=== PATIENT | female | born 1980 | race Caucasian/White ===

== ENCOUNTER 2018-05-18 00:19 | Emergency (ER) | payer BC ==
[2018-05-18] MEDS ORDERED: HYDROmorphone 0.5 MG/0.5 ML Syringe IVPUSH ONE (01:12)
[2018-05-18] MEDS ORDERED: Sodium Chloride 0.9% 1,000 ML IV SCH (01:15)
--- NOTE | 2018-05-18 01:15 | EDM.PDOC ---
ED HPI GENERAL MEDICAL PROBLEM - General Chief Complaint: Abdominal Pain Stated Complaint: Abdominal Pain Time Seen by Provider: 05/18/18 00:55 Source of Information: Reports: Patient, Family History Limitations: Reports: No Limitations - History of Present Illness INITIAL COMMENTS - FREE TEXT/NARRATIVE: 37-year-old female with a sudden onset of right lower quadrant and suprapubic pain for the past 4 hours. Marked increase in pain when trying to have a bowel movement or when she laughs or coughs she feels like there shows sharp pain in the rectum. It radiates into the back. Nausea but no vomiting, she's also had some increased urinary urgency. No fevers or chills. Onset: Sudden (Fairly sudden onset 4 hours ago) Location: Reports: Abdomen (Lower abdomen and pelvis) Severity: Moderate Associated Symptoms: Reports: Loss of Appetite, Nausea/Vomiting. 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: Other (see below) Other Treatments RADIO INTERFERENCE EXPERT: none Pelvic Pain Score (Numeric/FACES): 10 - Related Data Allergies Allergy/AdvReac Type Severity Reaction Status Date / Time azithromycin Allergy Rash Verified 02/25/15 23:35 [From Zithromax Z-Lupillo] cefaclor [From Ceclor] Allergy Rash Verified 02/25/15 23:34 bee stings Allergy Hives Uncoded 02/25/15 23:36 tapes Allergy Rash Uncoded 02/25/15 23:36 Home Meds: Home Meds Chrom Regino/Brindal Schmid [Garcinia Cambogia Tablet] 1 each PO DAILY 05/18/18 [ History] Chromium Amino Acid Chelate [Chromium] 400 mcg PO DAILY 05/18/18 [History] L.acidoph,Paracasei, B.lactis [Probiotic] 1 each PO DAILY 05/18/18 [History] Multivitamin-Min/Iron/FA/Vit K [Multi-Day Plus Minerals Tablet] 1 each PO DAILY 05/18/18 [History] [place]-3/DHA/Epa/Fish Oil [[place] 3 500 Softgel] 1 each PO DAILY 05/18/18 [History ] Past Medical History Respiratory History: Reports: Asthma 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: - Infectious Disease History Infectious Disease History: Reports: Chicken Pox - Past Surgical History HEENT Surgical History: Reports: Tonsillectomy GI Surgical History: Reports: Dax Fundoplication Female Surgical History: Reports: D&C, Hysterectomy, Other (See Below) Musculoskeletal Surgical History: Reports: Other (See Below) Other Musculoskeletal Surgeries/Procedures:: left knee surgery Social & Family History - Tobacco Use Smoking Status *Q: Unknown Ever Smoked - Caffeine Use Caffeine Use: Reports: Coffee - Alcohol Use Days Per Week of Alcohol Use: 2 Number of Drinks Per Day: 3 Total Drinks Per Week: 6 - Recreational Drug Use Recreational Drug Use: No ED ROS GENERAL - Review of Systems Review Of Systems: See Below Constitutional: Reports: Malaise. Denies: Fever, Chills HEENT: Reports: No Symptoms Respiratory: Denies: Shortness of Breath Cardiovascular: Denies: Chest Pain GI/Abdominal: Reports: Abdominal Pain, Nausea. Denies: Diarrhea, Vomiting : Reports: Urgency. Denies: Dysuria Skin: Reports: No Symptoms Neurological: Reports: No Symptoms Psychiatric: Reports: No Symptoms ED EXAM, GENERAL - Physical Exam Exam: See Below Exam Limited By: No Limitations General Appearance: Alert, Mild Distress (Looks fairly uncomfortable) Eye Exam: Bilateral Eye: Normal Inspection Head: Atraumatic Respiratory/Chest: No Respiratory Distress Cardiovascular: Regular Rate, Rhythm GI/Abdominal: Normal Bowel Sounds, Tender (Very tender to palpation of the right lower quadrant but no significant rebound tenderness) Neurological: Alert, Oriented Psychiatric: Normal Affect, Normal Mood Skin Exam: Warm, Dry Course - Vital Signs Last Recorded V/S: Last Vital Signs Temp 96.8 F 05/18/18 00:50 Pulse 96 05/18/18 01:10 Resp 14 05/18/18 01:10 BP 133/79 05/18/18 01:10 Pulse Ox 97 05/18/18 01:10 - Orders/Labs/Meds Orders: Active Orders 24 hr Category Date Time Status Abdomen Pelvis w Cont [CT] Stat Exams 05/18/18 01:38 Taken Labs: Laboratory Tests 05/18/18 05/18/18 05/18/18 Range/Units 01:13 01:20 01:20 WBC 15.9 H (4.5-11.0) K/uL RBC 4.92 (3.30-5.50) M/uL Hgb 14.5 (12.0-15.0) g/dL Hct 43.9 (36.0-48.0) % MCV 89 (80-98) fL MCH 30 (27-31) pg MCHC 33 (32-36) % Plt Count 307 (150-400) K/uL Neut % (Auto) 66 (36-66) % Lymph % (Auto) 25 (24-44) % [place] % (Auto) 7 H (2-6) % Eos % (Auto) 2 (2-4) % Baso % (Auto) 1 (0-1) % Sodium 148 (140-148) mmol/L Potassium 4.2 (3.6-5.2) mmol/L Chloride 112 H (100-108) mmol/L Carbon Dioxide 26 (21-32) mmol/L Anion Gap 14.2 H (5.0-14.0) mmol/L BUN 14 (7-18) mg/dL Creatinine 1.1 H (0.6-1.0) mg/dL Est Cr Clr Drug Dosing 69.95 mL/min Estimated GFR (MDRD) 56 L (>60) Glucose 108 H (74-106) mg/dL Calcium 9.2 (8.5-10.1) mg/dL Total Bilirubin 0.2 (0.2-1.0) mg/dL AST 15 (15-37) U/L ALT 30 (12-78) U/L Alkaline Phosphatase 79 (46-116) U/L C-Reactive Protein (0.0-0.3) mg/dL Total Protein 7.4 (6.4-8.2) g/dL Albumin 3.8 (3.4-5.0) g/dL Globulin 3.6 H (2.3-3.5) g/dL Albumin/Globulin Ratio 1.1 L (1.2-2.2) Urine Color Yellow Urine Appearance Clear Urine pH 8.0 (4.5-8.0) Ur Specific [place] 1.005 L (1.008-1.030) Urine Protein Negative (NEGATIVE) mg/dL Urine Glucose (UA) Normal (NEGATIVE) mg/dL Urine Ketones Negative (NEGATIVE) mg/dL Urine Occult Blood Negative (NEGATIVE) Urine Nitrite Negative (NEGATIVE) Urine Bilirubin Negative (NEGATIVE) Urine Urobilinogen Normal (NORMAL) mg/dL Ur Leukocyte Esterase Negative (NEGATIVE) Urine RBC Not seen (0-5) Urine WBC Not seen (0-5) Ur Epithelial Cells Rare Amorphous Sediment Not seen Urine Bacteria Not seen Urine Mucus Not seen 05/18/18 Range/Units 01:20 WBC (4.5-11.0) K/uL RBC (3.30-5.50) M/uL Hgb (12.0-15.0) g/dL Hct (36.0-48.0) % MCV (80-98) fL MCH (27-31) pg MCHC (32-36) % Plt Count (150-400) K/uL Neut % (Auto) (36-66) % Lymph % (Auto) (24-44) % [place] % (Auto) (2-6) % Eos % (Auto) (2-4) % Baso % (Auto) (0-1) % Sodium (140-148) mmol/L Potassium (3.6-5.2) mmol/L Chloride (100-108) mmol/L Carbon Dioxide (21-32) mmol/L Anion Gap (5.0-14.0) mmol/L BUN (7-18) mg/dL Creatinine (0.6-1.0) mg/dL Est Cr Clr Drug Dosing mL/min Estimated GFR (MDRD) (>60) Glucose (74-106) mg/dL Calcium (8.5-10.1) mg/dL Total Bilirubin (0.2-1.0) mg/dL AST (15-37) U/L ALT (12-78) U/L Alkaline Phosphatase (46-116) U/L C-Reactive Protein 0.62 H (0.0-0.3) mg/dL Total Protein (6.4-8.2) g/dL Albumin (3.4-5.0) g/dL Globulin (2.3-3.5) g/dL Albumin/Globulin Ratio (1.2-2.2) Urine Color Urine Appearance Urine pH (4.5-8.0) Ur Specific [place] (1.008-1.030) Urine Protein (NEGATIVE) mg/dL Urine Glucose (UA) (NEGATIVE) mg/dL Urine Ketones (NEGATIVE) mg/dL Urine Occult Blood (NEGATIVE) Urine Nitrite (NEGATIVE) Urine Bilirubin (NEGATIVE) Urine Urobilinogen (NORMAL) mg/dL Ur Leukocyte Esterase (NEGATIVE) Urine RBC (0-5) Urine WBC (0-5) Ur Epithelial Cells Amorphous Sediment Urine Bacteria Urine Mucus Meds: Medications Discontinued Medications Generic Name Dose Route Start Last Admin Trade Name Clementq PRN Reason Stop Dose Admin Hydromorphone HCl 0.5 mg 05/18/18 01:12 05/18/18 01:24 Dilaudid IVPUSH 05/18/18 01:13 0.5 mg ONETIME ONE Administration Sodium Chloride 1,000 mls @ 1,000 mls/hr 05/18/18 01:15 05/18/18 01:23 Normal Saline IV 1,000 mls/hr ASDIRECTED TORI Administration Sodium Chloride 81 mls @ 3 mls/min 05/18/18 01:45 05/18/18 01:57 Normal Saline IV 3 mls/min ASDIRECTED TORI Administration Iopamidol 136 ml 05/18/18 01:45 05/18/18 01:57 Isovue-300 (61%) IV 05/18/18 01:46 150 ml ONETIME ONE Administration Ketorolac Tromethamine 30 mg 05/18/18 02:22 05/18/18 02:31 Toradol IVPUSH 05/18/18 02:23 30 mg ONETIME ONE Administration Ondansetron HCl 4 mg 05/18/18 02:02 05/18/18 02:04 Zofran IVPUSH 05/18/18 02:03 4 mg ONETIME ONE Administration Ondansetron HCl Confirm 05/18/18 02:02 05/18/18 02:09 Zofran Administered 05/18/18 02:03 4 mg Dose Administration 4 mg .ROUTE .STK-MED ONE Sodium Chloride 10 ml 05/18/18 01:41 05/18/18 01:57 Saline Flush FLUSH 05/18/18 01:42 10 ml ONETIME ONE Administration - Re-Assessments/Exams Free Text/Narrative Re-Assessment/Exam: 05/18/18 01:15 A UA was obtained, CBC CMP and CRP was ordered and the patient was started on 1 L of normal saline in preparation for a CT scan with IV contrast. She was given 0.5 mg of IV Dilaudid. 05/18/18 02:03 White count was 15,900, hemoglobin normal. CRP just slightly elevated and the urine was negative. 05/18/18 02:04 Dilaudid help with pain but caused some nausea, 4 mg of Zofran IV was given. 05/18/18 02:23 CT scan was negative so patient was given 30 mg of IV Toradol, and 10 additional doses of 10 mg ketorolac to take 3 times a day for the next 2-3 days if needed. Advance diet as tolerated and return if not improving in 12-24 hours. Departure - Departure Time of Disposition: 02:57 Disposition: Home, Self-Care 01 Condition: Good Clinical Impression: Abdominal pain Qualifiers: Abdominal location: lower abdomen, unspecified Qualified Code(s): R10.30 - Lower abdominal pain, unspecified - Discharge Information Instructions: Abdominal Pain, Adult, [id number] Referrals: PCP,None [Primary Care Provider] - Forms: ED Department Discharge Care Plan Goals: Try 1 dose of ketorolac every 6 hours until pain is gone. Lots of fluids, and advance diet as tolerated and recheck in 1-2 days if not improving satisfactorily. Also recheck sooner if you develop a fever, diarrhea with blood or worsening pain. - My Orders Last 24 Hours: My Active Orders 05/18/18 01:38 Abdomen Pelvis w Cont [CT] Stat - Assessment/Plan Last 24 Hours: My Active Orders 05/18/18 01:38 Abdomen Pelvis w Cont [CT] Stat
[2018-05-18] MEDS ORDERED: Sodium Chloride 0.9% 10 ML Syringe FLUSH ONE (01:41)
[2018-05-18] MEDS ORDERED: Iopamidol 612 MG/ML 150 ML Bottle IV ONE (01:45)
[2018-05-18] MEDS ORDERED: Ondansetron 4 MG/2 ML SDV ONE (02:02)
[2018-05-18] MEDS ORDERED: Ondansetron 4 MG/2 ML SDV IVPUSH ONE (02:02)
[2018-05-18] MEDS ORDERED: Ketorolac 30 MG/ML SDV IVPUSH ONE (02:22)
[2018-05-18 02:57] VITALS: BP 133/79
== END 2018-05-18 02:48 | disposition home or self-care (01) ==
LOC: JP.ED 00:19
DX: R10.31 Right lower quadrant pain (principal); Z88.1 Allergy status to other antibiotic agents; Z91.030 Bee allergy status
CPT/HCPCS: 36415; 74177; 80053; 81001; 85025; 86140; 96361; 96374; 96375; 99284; J1170; J1885; J2405; J7030; J7050

== ENCOUNTER 2019-12-19 06:56 | Inpatient (IN) | payer BC ==
[2019-12-19] MEDS ORDERED: HYDROmorphone 0.5 MG/0.5 ML Syringe IVPUSH ONE ×2 (07:25→07:41)
[2019-12-19] MEDS ORDERED: Ondansetron 4 MG/2 ML SDV IVPUSH ONE (07:25)
[2019-12-19] MEDS ORDERED: Sodium Chloride 0.9% 1,000 ML IV SCH (07:30)
--- NOTE | 2019-12-19 07:38 | EDM.PDOC ---
ED HPI GENERAL MEDICAL PROBLEM - General Chief Complaint: Abdominal Pain Stated Complaint: RT SIDE ABDOMINAL PAIN Time Seen by Provider: 12/19/19 07:05 Source of Information: Reports: Patient History Limitations: Reports: No Limitations - History of Present Illness INITIAL COMMENTS - FREE TEXT/NARRATIVE: 39-year-old female with nausea vomiting and lower abdominal pain for the past 72 hours. It started 3 evenings ago after supper she developed nausea and vomiting, for the last 48 hours she has had lower abdominal pain. She was seen in the clinic yesterday and started on penicillin, and diagnosed with food poisoning. Over the past 12 hours the pain is worsened, localized even more into the right lower quadrant and she is developed significant peritoneal irritation. Unsure if there is been fever chills, mild nausea but no vomiting. She has a history of a total hysterectomy as her only abdominal surgery. No urinary symptoms. Onset: Gradual Duration: Day(s): (3 days) Location: Reports: Abdomen Worsens with: Reports: Movement Associated Symptoms: Reports: Malaise. Denies: Chest Pain, Cough Abdominal Pain Score (Numeric/FACES): 10 - Related Data Allergies Allergy/AdvReac Type Severity Reaction Status Date / Time azithromycin Allergy Rash Verified 12/19/19 07:11 [From Zithromax Z-Lupillo] cefaclor [From Ceclor] Allergy Rash Verified 12/19/19 07:11 minocycline Allergy Rash Verified 12/19/19 07:11 bee stings Allergy Hives Uncoded 02/25/15 23:36 tapes Allergy Rash Uncoded 02/25/15 23:36 Home Meds: Home Meds Chromium Amino Acid Chelate [Chromium] 400 mcg PO DAILY 05/18/18 [History] L.acidoph,Paracasei, B.lactis [Probiotic] 1 each PO DAILY 05/18/18 [History] Multivitamin-Min/Iron/FA/Vit K [Multi-Day Plus Minerals Tablet] 1 each PO DAILY 05/18/18 [History] [place]-3/DHA/Epa/Fish Oil [[place] 3 500 Softgel] 1 each PO DAILY 05/18/18 [History ] Albuterol Sulfate [Proventil Hfa] 1 puff INH ASDIRECTED PRN 12/19/19 [History] Past Medical History Respiratory History: Reports: Asthma 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: - Infectious Disease History Infectious Disease History: Reports: Chicken Pox - Past Surgical History HEENT Surgical History: Reports: Tonsillectomy GI Surgical History: Reports: Dax Fundoplication Female Surgical History: Reports: D&C, Hysterectomy Musculoskeletal Surgical History: Reports: Other (See Below) Other Musculoskeletal Surgeries/Procedures:: left knee surgery Social & Family History - Tobacco Use Smoking Status *Q: Light Tobacco Smoker Years of Tobacco use: 20 Packs/Tins Daily: 0.4 Tobacco Use Comment: smokes off and on for 20 years - Caffeine Use Caffeine Use: Reports: Coffee - Recreational Drug Use Recreational Drug Use: No ED ROS GENERAL - Review of Systems Review Of Systems: See Below Constitutional: Reports: Chills, Malaise, Decreased Appetite. Denies: Fever HEENT: Reports: No Symptoms Respiratory: Denies: Shortness of Breath Cardiovascular: Denies: Chest Pain GI/Abdominal: Reports: Abdominal Pain, Diarrhea, Nausea. Denies: Constipation Skin: Reports: Other Psychiatric: Reports: No Symptoms ED EXAM, GI/ABD - Physical Exam Exam: See Below Exam Limited By: No Limitations General Appearance: Alert, Moderate Distress Eyes: Bilateral: Normal Appearance (No jaundice) Respiratory/Chest: No Respiratory Distress, Lungs Clear Cardiovascular: Regular Rate, Rhythm GI/Abdominal Exam: Rigid (Significant guarding in the right lower quadrant with marked peritoneal irritation and rebound tenderness. Palpation of the left side of the abdomen refers to the right lower quadrant), Rebound, Tender Neurological: Alert, Oriented Psychiatric: Anxious Skin Exam: Warm, Dry Course - Vital Signs Last Recorded V/S: Last Vital Signs Temp 100.7 F H 12/19/19 10:14 Pulse 96 12/19/19 10:14 Resp 16 12/19/19 10:14 BP 121/71 12/19/19 10:14 Pulse Ox 95 12/19/19 10:14 - Orders/Labs/Meds Orders: Active Orders 24 hr Category Date Time Status Aztreonam [Azactam] 1 gm Med 12/19/19 09:00 Active Sodium Chloride 0.9% [Normal Saline] 50 ml IV Q8H Dextrose 5%-Lactated Ringers 1,000 ml Med 12/19/19 09:15 Active IV ASDIRECTED HYDROmorphone [Dilaudid] Med 12/19/19 09:04 Active 1 mg IV Q2H PRN Meropenem [Merrem] 500 mg Med 12/19/19 15:00 Active Sodium Chloride 0.9% [Normal Saline] 50 ml IV Q6H Ropivacaine [Naropin 0.5%] 45 ml Med 12/19/19 11:30 Active dexAMETHasone [Dexamethasone] 8 mg EPINEPHrine [Adrenalin] 0.4 mg Sodium Chloride 0.9% [Normal Saline] 32.6 ml NERVRT ASDIRECTED Medication Orders Ropivacaine 45 ml/Dexamethasone 8 mg/Epinephrine HCl 0.4 mg/ Sodium Chloride 32.6 ml 0 ml NERVRT ASDIRECTED TORI Last Admin: 12/19/19 11:59 Dose: 80 syringe Hydromorphone HCl (Dilaudid) 1 mg IV Q2H PRN PRN Reason: PAIN Last Admin: 12/19/19 11:06 Dose: 1 mg Hydroxyzine HCl (Vistaril) 100 mg IM ONETIME ONE Stop: 12/19/19 12:31 Aztreonam 1 gm/ Sodium (Chloride) 50 mls @ 100 mls/hr IV Q8H [facility] Last Admin: 12/19/19 09:09 Dose: 100 mls/hr Dextrose/Lactated Ringer's (Dextrose 5%-Lactated Ringers) 1,000 mls @ 150 mls/ hr IV ASDIRECTED [facility] Last Admin: 12/19/19 10:15 Dose: 150 mls/hr Meropenem 500 mg/ Sodium (Chloride) 50 mls @ 100 mls/hr IV Q6H [facility] Labs: Laboratory Tests 12/19/19 12/19/19 12/19/19 Range/Units 07:28 07:28 08:04 WBC 17.0 H (4.5-11.0) K/uL RBC 4.92 (3.30-5.50) M/uL Hgb 14.3 (12.0-15.0) g/dL Hct 44.6 (36.0-48.0) % MCV 91 (80-98) fL MCH 29 (27-31) pg MCHC 32 (32-36) % Plt Count 291 (150-400) K/uL Neut % (Auto) 84 H (36-66) % Lymph % (Auto) 10 L (24-44) % [place] % (Auto) 6 (2-6) % Eos % (Auto) 1 L (2-4) % Baso % (Auto) 0 (0-1) % Sodium 138 L (140-148) mmol/L Potassium 3.9 (3.6-5.2) mmol/L Chloride 104 (100-108) mmol/L Carbon Dioxide 23 (21-32) mmol/L Anion Gap 14.9 H (5.0-14.0) mmol/L BUN 16 (7-18) mg/dL Creatinine 1.1 H (0.6-1.0) mg/dL Est Cr Clr Drug Dosing 66.11 mL/min Estimated GFR (MDRD) 55 L (>60) Glucose 103 (74-106) mg/dL Calcium 8.7 (8.5-10.1) mg/dL Total Bilirubin 1.1 H D (0.2-1.0) mg/dL AST 13 L (15-37) U/L ALT 32 (12-78) U/L Alkaline Phosphatase 78 (46-116) U/L Total Protein 7.3 (6.4-8.2) g/dL Albumin 3.6 (3.4-5.0) g/dL Globulin 3.7 H (2.3-3.5) g/dL Albumin/Globulin Ratio 1.0 L (1.2-2.2) Urine Color Yellow (YELLOW) Urine Appearance Slightly cloudy A (CLEAR) Urine pH 6.0 (5.0-8.0) Ur Specific [place] 1.015 (1.008-1.030) Urine Protein Trace H (NEGATIVE) mg/dL Urine Glucose (UA) Negative (NEGATIVE) mg/dL Urine Ketones Negative (NEGATIVE) mg/dL Urine Occult Blood Trace-lysed H (NEGATIVE) Urine Nitrite Negative (NEGATIVE) Urine Bilirubin Negative (NEGATIVE) Urine Urobilinogen 0.2 (0.2-1.0) EU/dL Ur Leukocyte Esterase Negative (NEGATIVE) Urine RBC 0-5 (0-5) Urine WBC 0-5 (0-5) Ur Epithelial Cells Moderate Amorphous Sediment Not seen Urine Bacteria Few Urine Mucus Not seen Meds: Medications Generic Name Dose Route Start Last Admin Trade Name Freq PRN Reason Stop Dose Admin Ropivacaine 45 ml/ 0 ml 12/19/19 11:30 12/19/19 11:59 Dexamethasone 8 mg/ NERVRT 80 syringe Epinephrine HCl 0.4 mg/ Sodium ASDIRECTED TORI Administration Chloride 32.6 ml Hydromorphone HCl 1 mg 12/19/19 09:04 12/19/19 11:06 Dilaudid IV 1 mg Q2H PRN Administration PAIN Hydroxyzine HCl 100 mg 12/19/19 12:30 Vistaril IM 12/19/19 12:31 ONETIME ONE Aztreonam 1 gm/ Sodium 50 mls @ 100 mls/hr 12/19/19 09:00 12/19/19 09:09 Chloride IV 100 mls/hr Q8H TORI Administration Dextrose/Lactated Ringer's 1,000 mls @ 150 mls/hr 12/19/19 09:15 12/19/19 10: 15 Dextrose 5%-Lactated Ringers IV 150 mls/hr ASDIRECTED TORI Administration Meropenem 500 mg/ Sodium 50 mls @ 100 mls/hr 12/19/19 15:00 Chloride IV Q6H TORI Discontinued Medications Generic Name Dose Route Start Last Admin Trade Name Freq PRN Reason Stop Dose Admin Albuterol/Ipratropium 3 ml 12/19/19 11:30 12/19/19 11:05 Duoneb 3.0-0.5 Mg/3 Ml INH 12/19/19 11:31 3 ml ONCALL ONE Administration Bupivacaine HCl/Epinephrine Bitart Confirm 12/19/19 10:20 Marcaine 0.5%/Epinephrine 1:200,000 Administered 12/19/19 10:21 Dose 50 ml .ROUTE .STK-MED ONE Dexamethasone Confirm 12/19/19 09:20 Dexamethasone Administered 12/19/19 09:21 Dose 4 mg .ROUTE .STK-MED ONE Fentanyl Confirm 12/19/19 09:20 Sublimaze Administered 12/19/19 09:21 Dose 250 mcg .ROUTE .STK-MED ONE Fentanyl Confirm 12/19/19 11:40 Sublimaze Administered 12/19/19 11:41 Dose 250 mcg .ROUTE .STK-MED ONE Glycopyrrolate Confirm 12/19/19 09:20 Robinul Administered 12/19/19 09:21 Dose 1 mg .ROUTE .STK-MED ONE Hydromorphone HCl 0.5 mg 12/19/19 07:25 12/19/19 07:30 Dilaudid IVPUSH 12/19/19 07:26 0.5 mg ONETIME ONE Administration Hydromorphone HCl 0.5 mg 12/19/19 07:41 12/19/19 07:46 Dilaudid IVPUSH 12/19/19 07:42 0.5 mg ONETIME ONE Administration Hydromorphone HCl 1 mg 12/19/19 08:56 12/19/19 09:09 Dilaudid IVPUSH 12/19/19 08:57 1 mg ONETIME ONE Administration Sodium Chloride 1,000 mls @ 1,000 mls/hr 12/19/19 07:30 12/19/19 08:06 Normal Saline IV 1,000 mls/hr ASDIRECTED TORI Administration Meropenem 500 mg/ Sodium 50 mls @ 100 mls/hr 12/19/19 08:30 12/19/19 08:30 Chloride IV 12/19/19 08:59 100 mls/hr ONETIME ONE Administration Sodium Chloride Confirm 12/19/19 12:08 Normal Saline Administered 12/19/19 12:09 Dose 10 mls @ as directed .ROUTE .STK-MED ONE Meropenem Confirm 12/19/19 12:08 Merrem Administered 12/19/19 12:09 Dose 500 mg .ROUTE .STK-MED ONE Neostigmine Methylsulfate Confirm 12/19/19 09:20 Neostigmine Administered 12/19/19 09:21 Dose 5 mg .ROUTE .STK-MED ONE Ondansetron HCl 4 mg 12/19/19 07:25 12/19/19 07:32 Zofran IVPUSH 12/19/19 07:26 4 mg ONETIME ONE Administration Ondansetron HCl Confirm 12/19/19 09:20 Zofran Administered 12/19/19 09:21 Dose 4 mg .ROUTE .STK-MED ONE Pantoprazole Sodium 40 mg 12/19/19 10:00 12/19/19 10:16 Protonix Iv IV 12/19/19 10:01 40 mg ONETIME ONE Administration Propofol Confirm 12/19/19 09:20 Diprivan 20 Ml Administered 12/19/19 09:21 Dose 200 mg .ROUTE .STK-MED ONE Rocuronium [place] Confirm 12/19/19 09:20 Zemuron Administered 12/19/19 09:21 Dose 50 mg .ROUTE .STK-MED ONE Succinylcholine Chloride Confirm 12/19/19 09:20 Quelicin Administered 12/19/19 09:21 Dose 200 mg .ROUTE .[facility] ONE - Re-Assessments/Exams Free Text/Narrative Re-Assessment/Exam: 12/19/19 07:38 An IV was started, patient was given 0.5 mg of IV Dilaudid and 4 mg of IV Zofran and a bolus of 1000 cc of normal saline was initiated. CT of the abdomen and pelvis without contrast was ordered. 12/19/19 07:42 A second dose of Dilaudid was given prior to the CT. 12/19/19 08:35 Impression: 1. Acute appendicitis with an appendicolith and tiny amount of free fluid in the pelvic peritoneal cavity. 2. A 2mm nonobstructing calculus upper pole calyx right kidney without any obstructive uropathy or perinephric pathology. 3. Large area of ground-glass opacities lower lobe right lung; suggest obtaining a dedicated chest CT. 12/19/19 09:43 White count is now 17,000, 20,[address] findings were discussed with Dr. Alcocer, on-call surgery and 500 mg of IV meropenem was ordered. She will be admitted to prepare for surgical treatment of acute appendicitis. Departure - Departure Time of Disposition: 10:17 Disposition: Admitted As Inpatient 65 Clinical Impression: Appendicitis Qualifiers: Appendicitis type: acute appendicitis Acute appendicitis type: with localized peritonitis Appendicitis gangrene presence: without gangrene Appendicitis perforation presence: without perforation Appendicitis abscess presence: without abscess Qualified Code(s): K35.30 - Acute appendicitis with localized peritonitis, without perforation or gangrene - Discharge Information Sepsis Event Note - Evaluation Sepsis Screening Result: No Definite Risk - Focused Exam Vital Signs: Vital Signs Temp Pulse Resp BP Pulse Ox 12/19/19 08:40 87 18 118/71 98 12/19/19 08:15 95 18 137/83 98 12/19/19 07:48 93 129/76 97 12/19/19 07:08 98 F 98 20 121/67 98 Date Exam was Performed: 12/19/19 Time Exam was Performed: 12:33
[2019-12-19] MEDS ORDERED: Meropenem 500 MG in Sodium Chloride 0.9% 50 ML IV ONE ×2 (08:04→08:30)
--- NOTE | 2019-12-19 08:33 | CRLCT ---
INDICATION: Lower abdominal pain. COMPARISON: CT abdomen and pelvis 05/18/2018. TECHNIQUE: CT abdomen and pelvis without intravenous or oral contrast; coronal and sagittal reformats. FINDINGS: No abnormal intra pulmonary nodular densities through the lung bases. Large areas of patchy ground-glass opacities identified involving the lower lobe right lung; relatively new when compared to May 18, 2018; suggest obtaining a dedicated full chest CT as an outpatient. No focal hepatic or splenic pathology. No pancreatic pathology. Gallbladder is unremarkable. No adrenal pathology. 2 mm nonobstructing calculus upper pole calyx right kidney slice 45 series 2. No retroperitoneal lymphadenopathy. No evidence of abdominal ascites. Status post hysterectomy. Small amount of free fluid identified within the pelvic peritoneal cavity. An appendicolith with edema involving the tip of the appendix with periappendiceal inflammatory changes indicating acute appendicitis. No intra-abdominal abscess. No pneumoperitoneum or intestinal obstruction. Impression: 1. Acute appendicitis with an appendicolith and tiny amount of free fluid in the pelvic peritoneal cavity. 2. A 2mm nonobstructing calculus upper pole calyx right kidney without any obstructive uropathy or perinephric pathology. 3. Large area of ground-glass opacities lower lobe right lung; suggest obtaining a dedicated chest CT. Please note that all CT scans at this facility use dose modulation, iterative reconstruction, and/or weight-based dosing when appropriate to reduce radiation dose to as low as reasonably achievable. Dictated by Fred Rivera MD @ Dec 19 2019 8:11AM Signed by Dr. Fred Rivera @ Dec 19 2019 8:32AM
[2019-12-19] MEDS ORDERED: HYDROmorphone 1 MG/ML Syringe IVPUSH ONE (08:56)
[2019-12-19] MEDS ORDERED: HYDROmorphone 1 MG/ML Syringe IV PRN ×2 (09:04→14:17)
[2019-12-19] MEDS ORDERED: Dextrose 5%-Lactated Ringers 1,000 ML IV SCH (09:15)
[2019-12-19] MEDS ORDERED: Ondansetron 4 MG/2 ML SDV ONE (09:20)
[2019-12-19] MEDS ORDERED: Propofol 200 MG/20 ML SDV ONE (09:20)
[2019-12-19] MEDS ORDERED: Succinylcholine 200 MG/10 ML MDV ONE (09:20)
[2019-12-19] MEDS ORDERED: Glycopyrrolate 0.2 MG/ML 5 ML MDV ONE (09:20)
[2019-12-19] MEDS ORDERED: Neostigmine Methylsulfate 1 MG/ML 5 ML Syringe ONE (09:20)
[2019-12-19] MEDS ORDERED: Dexamethasone 4 MG/ML SDV ONE (09:20)
[2019-12-19] MEDS ORDERED: Rocuronium 50 MG/5 ML Vial ONE (09:20)
[2019-12-19] MEDS ORDERED: fentaNYL 250 MCG/5 ML SDV ONE ×2 (09:20→11:40)
[2019-12-19] MEDS ORDERED: Pantoprazole 40 MG Vial IV ONE (10:00)
[2019-12-19] MEDS ORDERED: Bupivacaine 0.5%/EPINEPHrine 1:200,000 50 ML MDV ONE (10:20)
[2019-12-19] MEDS ORDERED: Albuterol/Ipratropium 3.0-0.5 MG/3 ML Neb Soln INH ONE (11:30)
[2019-12-19] MEDS ORDERED: Sodium Chloride 0.9% 10 ML ONE (12:08)
[2019-12-19] MEDS ORDERED: Meropenem 500 MG SDV ONE (12:08)
[2019-12-19] MEDS ORDERED: hydrOXYzine HCL 100 MG/2 ML SDV IM ONE (12:30)
[2019-12-19] MEDS: Dextrose 5%-Lactated Ringers 1,000 ML IV SCH ×2 (14:00→23:22)
[2019-12-19] MEDS ORDERED: HYDROmorphone 0.5 MG/0.5 ML Syringe IVPUSH PRN (14:18)
[2019-12-19] MEDS ORDERED: oxyCODONE 5 MG Tab PO PRN (14:18)
[2019-12-19] MEDS ORDERED: hydrOXYzine HCL 100 MG/2 ML SDV IM PRN (14:19)
[2019-12-19] MEDS ORDERED: Albuterol/Ipratropium 3.0-0.5 MG/3 ML Neb Soln INH PRN (14:20)
[2019-12-19] MEDS: Ondansetron 4 MG/2 ML SDV IVPUSH PRN (14:44)
[2019-12-19] MEDS: Meropenem 500 MG in Sodium Chloride 0.9% 50 ML IV SCH ×2 (15:40→20:40)
[2019-12-19] MEDS: Albuterol/Ipratropium 3.0-0.5 MG/3 ML Neb Soln INH SCH ×2 (15:44→20:52)
[2019-12-19] MEDS: Acetaminophen 500 MG Tab PO SCH ×2 (16:32→21:32)
[2019-12-19] MEDS: Nicotine 14 MG/24 Hr Patch TRDERM SCH (18:47)
[2019-12-19] MEDS: HYDROmorphone 2 MG Tab PO PRN (22:39)
[2019-12-20] MEDS: HYDROmorphone 2 MG Tab PO PRN ×5 (03:12→18:53)
[2019-12-20] MEDS: Acetaminophen 500 MG Tab PO SCH ×4 (03:13→21:35)
[2019-12-20] MEDS: Meropenem 500 MG in Sodium Chloride 0.9% 50 ML IV SCH ×4 (03:14→20:14)
[2019-12-20] MEDS: Dextrose 5%-Lactated Ringers 1,000 ML IV SCH ×3 (06:43→21:37)
[2019-12-20] MEDS ORDERED: Ondansetron 4 MG Tab.DIS PO PRN (07:14)
[2019-12-20] MEDS ORDERED: hydrOXYzine HCl 25 MG Tab PO PRN (07:15)
[2019-12-20] MEDS: Nicotine 14 MG/24 Hr Patch TRDERM SCH (09:20)
[2019-12-20] MEDS: Celecoxib 200 MG Cap PO SCH ×2 (09:20→20:15)
[2019-12-20] MEDS: Pantoprazole 40 MG Vial IV SCH (09:22)
[2019-12-20] MEDS: Albuterol/Ipratropium 3.0-0.5 MG/3 ML Neb Soln INH SCH ×4 (09:34→20:15)
--- NOTE | 2019-12-20 11:32 | PN ---
DATE OF SERVICE: 12/20/2019 SUBJECTIVE: Cat is postoperative day 1. She states she has had a difficult time keeping ahead of her pain, and on top of the surgical pain, she states she has a headache, thinking it is from caffeine withdrawal. She did have a little bit of coffee, but does not feel like it was enough. Her Jones has been removed. She has been up voiding. Afebrile. Oral intake 120. Urine output 1085. CHYNA put out 65 mL of a light pink drainage. REVIEW OF SYSTEMS: Remainder of review of systems negative for any pertinent positives and negatives. OBJECTIVE: GENERAL: Cat Calzada is a pleasant 39-year-old female. She is alert and orientated. VITAL SIGNS: TPR from 0259 is 97.7, 66, 16, and blood pressure 107/56. HEENT: Negative. NECK: Supple. HEART: Regular rate and rhythm. LUNGS: Clear. ABDOMEN: Dressing is dry and intact. Abdominal binder is on. CHYNA drain intact. EXTREMITIES: Without peripheral edema. ASSESSMENT: 1. Diagnostic laparotomy with;. a. Partial cecectomy involving removal of overlying appendix. b. Drainage of pericolonic abscess for postoperative diagnosis of perforated appendix with severe inflammation extending to the cecal base. 2. Pericolonic abscess. PLAN: 1. May shower. 2. Full liquid diet. 3. Celebrex 200 mg p.o. b.i.d. 4. Dilaudid 2 to 4 mg every 4 hours p.r.n. pain. 5. Atarax 25 mg every 4 hours p.r.n. additional pain. 6. Zofran ODT 4 mg every 4 hours p.r.n. nausea or vomiting. 7. Decrease IV of D5-LR to 100 mL per hour. 8. Discontinue IV Dilaudid. 9. Discontinue continuous pulse ox and discontinue telemetry. 10.Continue use of the incentive spirometer 10 times every hour while awake. 11.We will evaluate p.r.n. or in the a.m. Eloise Hess PA-C /[id number]
[2019-12-20] MEDS: Ondansetron 4 MG/2 ML SDV IVPUSH PRN (11:50)
[2019-12-21] MEDS: HYDROmorphone 2 MG Tab PO PRN ×4 (00:32→20:06)
[2019-12-21] MEDS: Meropenem 500 MG in Sodium Chloride 0.9% 50 ML IV SCH ×4 (03:48→20:46)
[2019-12-21] MEDS: Acetaminophen 500 MG Tab PO SCH ×4 (03:48→21:13)
[2019-12-21] MEDS: Albuterol/Ipratropium 3.0-0.5 MG/3 ML Neb Soln INH SCH ×4 (07:17→20:27)
[2019-12-21] MEDS: Dextrose 5%-Lactated Ringers 1,000 ML IV SCH ×2 (08:22→19:39)
[2019-12-21] MEDS: Nicotine 14 MG/24 Hr Patch TRDERM SCH (09:22)
[2019-12-21] MEDS: Celecoxib 200 MG Cap PO SCH ×2 (09:22→20:10)
[2019-12-21] MEDS: Pantoprazole 40 MG Vial IV SCH (09:23)
[2019-12-21] MEDS ORDERED: Magnesium Hydroxide 400 MG/5 ML Susp 30 ML Cup PO ONE (10:00)
[2019-12-21] MEDS: Bisacodyl 5 MG Tab PO SCH ×2 (10:11→20:10)
[2019-12-21] MEDS: Docusate Sodium 100 MG Cap PO SCH ×2 (10:11→20:10)
[2019-12-21] MEDS: Lactobacillus Rhamnosus GG (Probiotic) Cap PO SCH ×2 (14:41→20:09)
[2019-12-22] MEDS: HYDROmorphone 2 MG Tab PO PRN ×2 (01:48→09:58)
[2019-12-22] MEDS ORDERED: hydrOXYzine HCl 25 MG Tab PO PRN (02:46)
[2019-12-22] MEDS: Meropenem 500 MG in Sodium Chloride 0.9% 50 ML IV SCH ×2 (02:54→08:27)
[2019-12-22] MEDS: Acetaminophen 500 MG Tab PO SCH (03:00)
[2019-12-22 07:06] VITALS: BP 122/76
[2019-12-22] MEDS: Albuterol/Ipratropium 3.0-0.5 MG/3 ML Neb Soln INH SCH (07:10)
[2019-12-22 07:11] VITALS: PULSE 80
[2019-12-22] MEDS: Nicotine 14 MG/24 Hr Patch TRDERM SCH (08:09)
[2019-12-22] MEDS: Bisacodyl 5 MG Tab PO SCH (08:09)
[2019-12-22] MEDS: Docusate Sodium 100 MG Cap PO SCH (08:09)
[2019-12-22] MEDS: Lactobacillus Rhamnosus GG (Probiotic) Cap PO SCH (08:09)
[2019-12-22] MEDS: Celecoxib 200 MG Cap PO SCH (08:09)
--- NOTE | 2019-12-22 10:43 | PN ---
DATE OF SERVICE: 12/21/2019 The patient has been afebrile with stable vital signs. There has been no flatus or bowel movement as of yet. We will give her some bowel stimulation today. Cultures ruled out Escherichia coli which is sensitive to the antibiotic that she is on. We will continue the meropenem and Azactam. Switching over to oral pain medication today and she may be ready for discharge home tomorrow. Juan Manuel Alcocer MD /[id number]
--- NOTE | 2019-12-30 16:24 | DISCH ---
FINAL DIAGNOSIS: Perforated appendicitis with severe inflammation extending to cecal base with pericolonic abscess. SECONDARY DIAGNOSIS: History of asthma. OPERATIVE PROCEDURES: Done on 12/18, diagnostic laparoscopy with: 1. Partial cecectomy including removal of overlying appendix. 2. Drainage of pericolonic abscess. SUMMARY: This is a 39-year-old presenting with a picture of an acute abdomen. Workup was consistent with appendicitis. There was some visible pelvic fluid, making this suspicious for one with perforation. After preoperative preparation, the patient underwent diagnostic laparoscopy and perforated appendicitis with severe inflammation extending down onto the cecum was noted. The patient had a pericolonic abscess extending from the pelvis up along the right colic gutter up more or less to the level of the inferior aspect of the right lobe of the liver. This abscess was cultured and it ultimately grew E coli sensitive to the antibiotics the patient had been on. The patient also underwent irrigation of the abdomen and pelvis with meropenem. At the time of discharge, she has a clear CHYNA drainage, is tolerating oral pain medication satisfactorily, and has been afebrile. The plan will be to send her home with her usual home medications plus Atarax 50 mg p.o. q.4 hours p.r.n. pain, Celebrex 200 mg p.o. daily #30, DuoNeb with home nebulizer #40, and Dilaudid 4 mg q.4 hours p.r.n. pain #40. She will be following up with Dr. Alcocer at [facility] on 12/31.
--- NOTE | 2020-01-01 14:57 | OR ---
DATE OF PROCEDURE: 12/19/2019 SURGEON: Juan Manuel Alcocer MD PREOPERATIVE DIAGNOSIS: Acute appendicitis. POSTOPERATIVE DIAGNOSES: 1. Perforated appendicitis with severe inflammation extending onto cecal base. 2. Pericolonic abscess. OPERATIVE PROCEDURES: Diagnostic laparoscopy with, 1. Partial cecectomy including removal of overlying appendix (05017). 2. Drainage of pericolonic abscess (26883). ANESTHESIA: General. SPECIAL EDUCATION SUPERVISOR: Eloise Hess PA-C INDICATION FOR PROCEDURE: This is a 39-year-old female presenting with 72-hour history of increasing abdominal pain. Workup was consistent with acute appendicitis. There is some fluid in the pelvis suggestive of likelihood of perforation. Plan is to proceed with diagnostic laparoscopy, laparotomy if necessary, and appendectomy with other procedures as indicated based on operative findings. Potential risks of the procedure including bleeding, infection, leaks from various GI tract closures such as appendectomy stump, possible recurrent infection or abscesses postoperatively as well as the remote possibility of cardiopulmonary, septic, or hemorrhagic complications leading to were all discussed, and the patient wishes to proceed. DETAILS OF PROCEDURE: The patient was taken to the operating room and placed in the supine position. After general endotracheal anesthesia was induced, a Jones catheter was inserted, and the abdomen was prepped and draped. Three fingerbreadths superior to the left of the umbilicus, a transverse incision was made and peritoneal cavity entered under direct visualization with an Optiview trocar and inflated to 15 mmHg pressure with CO2. Laparoscope was then reinserted. No underlying trocar insertion site injuries were seen. Following this, 12 mm trocars were placed in the left lower quadrant and right upper quadrant and subsequently a 5-mm trocar placed in the right flank for placement of a drain. As the appendix was mobilized upward, there was obviously free perforation. There was some stool present in the area next to the appendix, and this was initially evacuated. The patient's inflammation and necrosis extended up onto the cecum, to the extent that the base of the appendix itself will not be a suitable point for division of the GI tract. Given this, this was mobilized upward and portion of the cecum excised with 2 firings of the NANDA purple loads. Care was taken to avoid compressing or narrowing the ileocecal valve. The specimen was then placed in a specimen bag and taken out through the left lower quadrant trocar site. The patient had extensive abscess extending next to the colon up to the level of the liver. This pericolonic abscess extended downward across the ascending colon, cecum, and then extended somewhat into the pelvis. This was all evacuated and cultures were obtained. Initial Gram stain showed gram-negative rods. Given the extent of the abscess formation, meropenem was then used to irrigate the abdomen and pelvis and 1 liter of this solution was used eventually resulting in a satisfactory clearance of the abdomen and pelvis. Tor-Giraldo drain was then taken out through the right flank trocar site, placed across the cecal closure and from there into the pelvis. Cecal closure was then also reinforced with some fibrin sealant and an omental patch placed over that. At this point, no further problems were noted. Trocars were removed and peritoneal cavity deflated. Incisions were closed with 0 Vicryl stitch at the fascia level and 4-0 Vicryl skin stitch. The removal of the specimen through the specimen bag appeared to be clean enough to allow a primary closure of the left lower quadrant trocar site. The patient was taken to the recovery room in satisfactory condition. Physician residential living assistant, Eloise Hess, played an essential role in assisting in this case; helping to position the patient, retract structures as needed, as well as suturing and cutting sutures when indicated. Her presence improved patient safety and decreased the operative time. Juan Manuel Alcocer MD /[id number]
== END 2019-12-22 10:25 | disposition home or self-care (01) | DRG 221 ==
LOC: JP.ED 06:56 → JP.MS 09:30
PROVIDERS: ADMIT Surgery; ATTEND Surgery
PROC: 0DTJ4ZZ Resection of Appendix, Percutaneous Endoscopic Approach (ICD-10-PCS; principal; 2019-12-19)
PROC: 0W9G4ZZ Drainage of Peritoneal Cavity, Percutaneous Endoscopic Approach (ICD-10-PCS; 2019-12-19)
PROC: 0DBH4ZZ Excision of Cecum, Percutaneous Endoscopic Approach (ICD-10-PCS; 2019-12-19)
DX: K35.33 Acute appendicitis with perforation, localized peritonitis, and gangrene, with abscess (principal); K55.049 Acute infarction of large intestine, extent unspecified; K63.0 Abscess of intestine; F17.210 Nicotine dependence, cigarettes, uncomplicated; J45.909 Unspecified asthma, uncomplicated; Z90.710 Acquired absence of both cervix and uterus; Z88.1 Allergy status to other antibiotic agents; Z88.8 Allergy status to other drugs, medicaments and biological substances; Z91.030 Bee allergy status; Z91.09 Other allergy status, other than to drugs and biological substances; Z79.899 Other long term (current) drug therapy; Z90.89 Acquired absence of other organs
CPT/HCPCS: 36415; 74176; 80053; 81001; 85025; 87070; 87075; 87077; 87186; 87205; 88304; 94640; 94762; 96365; 96367; 96375; 96376; 99285-25; A9270-GY; C9113; J0171; J0330; J1100; J1170; J2185; J2405; J2704; J2710; J2795; J3010; J3410; J3490; J7030; J7050; J7121; J7620-GY

== ENCOUNTER 2020-03-10 18:15 | Emergency (ER) | payer BC ==
[2020-03-10 19:27] VITALS: BP 133/82; PULSE 60
--- NOTE | 2020-03-10 19:41 | EDM.PDOC ---
ED HPI GENERAL MEDICAL PROBLEM - General Chief Complaint: General Stated Complaint: BLURRY VISION Time Seen by Provider: 03/10/20 19:25 Source of Information: Reports: Patient History Limitations: Reports: No Limitations - History of Present Illness INITIAL COMMENTS - FREE TEXT/NARRATIVE: 39-year-old female developed left lateral wavy and blurry vision about 2 hours ago, occurring 2-1/2 days after left-sided head injury. She was inadvertently struck on the left side of her head by one of her goats, it did hit her in the temporal area with a horn and even caused a small puncture in the helix of the ear. It knocked her to her knees but did not knock her out, she has full memory of the event. She has not developed any nausea or vomiting, does have a mild headache or pressure sensation but no double vision. Some neck soreness. 2 hours after coming into the emergency room, while looking at her computer she developed some left lateral waviness and blurriness which worsens if she looks to the right. She called optometry and they told her to come to the emergency room. Onset: Sudden (Blurry vision started fairly suddenly 2 hours ago) Associated Symptoms: Reports: Other (Mild left-sided headache or head pressure) Left Head Pain Score (Numeric/FACES): 2 - Related Data Allergies Allergy/AdvReac Type Severity Reaction Status Date / Time azithromycin Allergy Rash Verified 03/10/20 19:13 [From Zithromax Z-Lupillo] cefaclor [From Ceclor] Allergy Rash Verified 03/10/20 19:13 minocycline Allergy Rash Verified 03/10/20 19:13 bee stings Allergy Hives Uncoded 03/10/20 19:13 tapes Allergy Rash Uncoded 03/10/20 19:13 Home Meds: Home Meds Chromium Amino Acid Chelate [Chromium] 400 mcg PO DAILY 05/18/18 [History] L.acidoph,Paracasei, B.lactis [Probiotic] 1 each PO DAILY 05/18/18 [History] Multivitamin-Min/Iron/FA/Vit K [Multi-Day Plus Minerals Tablet] 1 each PO DAILY 05/18/18 [History] Collins-3/DHA/Epa/Fish Oil [Collins 3 500 Softgel] 1 each PO DAILY 05/18/18 [History] Albuterol Sulfate [Proventil Hfa] 1 puff INH ASDIRECTED PRN 12/19/19 [History] Past Medical History HEENT History: Reports: Impaired Vision Respiratory History: Reports: Asthma Gastrointestinal History: Reports: GERD 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: Neurological History: Reports: Concussion, Migraines Hematologic History: Reports: Anemia, Other (See Below) Other Hematologic History: clotting issue when young but it has since cleared up Dermatologic History: Reports: Other (See Below) Other Dermatologic History: cyst removal - Infectious Disease History Infectious Disease History: Reports: Chicken Pox, Helicobacter Pylori, Mononucleosis - Past Surgical History HEENT Surgical History: Reports: Tonsillectomy GI Surgical History: Reports: Appendectomy, Dax Fundoplication Female Surgical History: Reports: D&C, Hysterectomy, Salpingo-Oophorectomy Musculoskeletal Surgical History: Reports: Other (See Below) Other Musculoskeletal Surgeries/Procedures:: left knee surgery Social & Family History - Tobacco Use Smoking Status *Q: Current Every Day Smoker Years of Tobacco use: 25 Packs/Tins Daily: 0.3 - Caffeine Use Caffeine Use: Reports: Coffee - Recreational Drug Use Recreational Drug Use: No ED ROS GENERAL - Review of Systems Review Of Systems: See Below Constitutional: Denies: Fever, Chills, Malaise HEENT: Reports: Vision Change. Denies: Eye Pain Respiratory: Denies: Shortness of Breath, Cough Cardiovascular: Denies: Chest Pain GI/Abdominal: Denies: Abdominal Pain, Nausea, Vomiting Skin: Reports: Other (Small puncture wound in the helix of the ear is healing nicely) Neurological: Reports: Headache (Very mild head pressure) ED EXAM, GENERAL - Physical Exam Exam: See Below Exam Limited By: No Limitations General Appearance: Alert, No Apparent Distress Eye Exam: Bilateral Eye: EOMI, PERRL, Vision Changes (Visual acuity is good but she does have some blurriness to the left lateral vision, left eye only) Ears: Normal TMs (Both tympanic membranes are normal), Other (She has a small scratch or puncture wound on the upper helix of the left ear) Head: Other (Slight soreness to palpation around the temporal and parietal area of the left scalp, no hematoma, abrasion or bruising seen) Respiratory/Chest: No Respiratory Distress, Lungs Clear Neurological: Alert, Oriented, No Motor/Sensory Deficits Psychiatric: Normal Affect, Normal Mood Skin Exam: Warm, Dry Course - Vital Signs Last Recorded V/S: Last Vital Signs Temp 96.9 F 03/10/20 19:16 Pulse 60 03/10/20 19:26 Resp 17 03/10/20 19:26 BP 133/82 03/10/20 19:26 Pulse Ox 98 03/10/20 19:26 - Re-Assessments/Exams Free Text/Narrative Re-Assessment/Exam: 03/10/20 19:47 Due to the head trauma and the developing visual symptoms, a head CT without contrast was obtained. If this is normal a referral to optometry tomorrow will be made. 03/10/20 19:[address] is negative, patient remained comfortable. She will recheck with optometry tomorrow if symptoms are persistent. 03/10/20 20:15 IMPRESSION: : 1. No acute intracranial findings. 2. Probable focal soft tissue laceration overlying the left vertex Departure - Departure Time of Disposition: 20:35 Disposition: Home, Self-Care 01 Clinical Impression: Blurry vision, left eye - Discharge Information Instructions: Blurred Vision, Adult Referrals: Toyin Ward CNM [Primary Care Provider] - Forms: ED Department Discharge Care Plan Goals: Recheck with optometry tomorrow if symptoms persist. Sepsis Event Note (ED) - Evaluation Sepsis Screening Result: No Definite Risk - Focused Exam Vital Signs: Vital Signs Temp Pulse Resp BP Pulse Ox 03/10/20 19:26 60 17 133/82 98 03/10/20 19:16 96.9 F 76 16 134/74 100 03/10/20 18:31 96.9 F 76 16 134/74 100
--- NOTE | 2020-03-10 20:12 | CRLCT ---
INDICATION: Left-lateral blurred vision after being hit in head by goat. COMPARISON: None TECHNIQUE: CT of the head without IV contrast. Coronal and sagittal reconstructions are provided. FINDINGS: No intracranial hemorrhage, mass effect, or evidence of acute infarct. No midline shift. No abnormal extra-axial fluid collections. Normal caliber ventricular system. Partially visualized orbits and extraocular muscles appear symmetric and intact. The visualized paranasal sinuses and mastoid air cells are clear. No acute fracture. Focal soft tissue defect overlying the left vertex could represent laceration (series 4, image 26). Few sebaceous cysts in the scalp. IMPRESSION: : 1. No acute intracranial findings. 2. Probable focal soft tissue laceration overlying the left vertex. Please note that all CT scans at this facility use dose modulation, iterative reconstruction, and/or weight-based dosing when appropriate to reduce radiation dose to as low as reasonably achievable. Dictated by Eloise Steven MD @ Mar 10 2020 8:05PM Signed by Dr. Eloise Steven @ Mar 10 2020 8:10PM
== END 2020-03-10 20:36 | disposition home or self-care (01) ==
LOC: JP.ED 18:15
DX: H53.8 Other visual disturbances (principal); J45.909 Unspecified asthma, uncomplicated; F17.210 Nicotine dependence, cigarettes, uncomplicated; Z88.1 Allergy status to other antibiotic agents; Z91.030 Bee allergy status; Z91.048 Other nonmedicinal substance allergy status; Z79.899 Other long term (current) drug therapy
CPT/HCPCS: 70450; 99284-25

== ENCOUNTER 2020-11-28 16:19 | Emergency (ER) | payer BC ==
[2020-11-28] MEDS ORDERED: Diphtheria,Pertussis(Acell),Tetanus Vaccine 0.5 ML Syringe IM ONE (16:30)
[2020-11-28] MEDS ORDERED: Bacitracin Oint 1 GM U/D Packet TOP ONE (16:34)
--- NOTE | 2020-11-28 16:40 | EDM.PDOC ---
ED HPI GENERAL MEDICAL PROBLEM - General Chief Complaint: Lower Extremity Injury/Pain Stated Complaint: NAIL IN RT FOOT Time Seen by Provider: 11/28/20 16:30 Source of Information: Reports: Patient, RN History Limitations: Reports: No Limitations - History of Present Illness INITIAL COMMENTS - FREE TEXT/NARRATIVE: 40 yo female stepped on a nail at home prior to arrival. Was wearing plastic sandals at the time. Is not UTD on her tetanus. 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: Other (see below) (rinsed wound) - Related Data Allergies Allergy/AdvReac Type Severity Reaction Status Date / Time azithromycin Allergy Rash Verified 11/28/20 16:34 [From Zithromax Z-Lupillo] cefaclor [From Ceclor] Allergy Rash Verified 11/28/20 16:34 minocycline Allergy Rash Verified 11/28/20 16:34 bee stings Allergy Hives Uncoded 11/28/20 16:34 tapes Allergy Rash Uncoded 11/28/20 16:34 Home Meds: Home Meds Chromium Amino Acid Chelate [Chromium] 400 mcg PO DAILY 05/18/18 [History] L.acidoph,Paracasei, B.lactis [Probiotic] 1 each PO DAILY 05/18/18 [History] Multivitamin-Min/Iron/FA/Vit K [Multi-Day Plus Minerals Tablet] 1 each PO DAILY 05/18/18 [History] Roby-3/DHA/Epa/Fish Oil [Roby 3 500 Softgel] 1 each PO DAILY 05/18/18 [History] Albuterol Sulfate [Proventil Hfa] 1 puff INH ASDIRECTED PRN 12/19/19 [History] Past Medical History HEENT History: Reports: Impaired Vision Respiratory History: Reports: Asthma Gastrointestinal History: Reports: 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: Neurological History: Reports: Concussion, Migraines Hematologic History: Reports: Anemia, Other (See Below) Other Hematologic History: clotting issue when young but it has since cleared up Dermatologic History: Reports: Other (See Below) Other Dermatologic History: cyst removal - Infectious Disease History Infectious Disease History: Reports: Chicken Pox, Helicobacter Pylori, Mononucleosis - Past Surgical History HEENT Surgical History: Reports: Tonsillectomy GI Surgical History: Reports: Appendectomy, Dax Fundoplication Female Surgical History: Reports: D&C, Hysterectomy, Salpingo-Oophorectomy Musculoskeletal Surgical History: Reports: Other (See Below) Other Musculoskeletal Surgeries/Procedures:: left knee surgery Social & Family History - Caffeine Use Caffeine Use: Reports: Coffee Review of Systems - Review of Systems Review Of Systems: See Below Constitutional: Reports: No Symptoms Musculoskeletal: Reports: No Symptoms Skin: Reports: Wound (R sole) Neurological: Reports: No Symptoms Psychiatric: Reports: No Symptoms ED EXAM, GENERAL - Physical Exam Exam: See Below Exam Limited By: No Limitations General Appearance: Alert, WD/WN, No Apparent Distress Extremities: No Pedal Edema. No: Pedal Edema, Limited Range of Motion, Increased Warmth, Redness Neurological: Alert, Oriented, CN II-XII Intact, Normal Cognition, No Motor/Sensory Deficits Psychiatric: Normal Affect, Normal Mood Skin Exam: Warm, Dry, Normal Color, No Rash, Wound/Incision (puncture of R forefoot, no active bleeding or sign of retained FB. ) Course - Vital Signs Text/Narrative:: Wound cleaned and dressed by nursing. Boostrix given. Last Recorded V/S: Last Vital Signs Temp 36.9 C 11/28/20 16:29 Pulse 79 11/28/20 16:29 Resp 16 11/28/20 16:29 BP 129/81 11/28/20 16:29 Pulse Ox 99 11/28/20 16:29 - Orders/Labs/Meds Orders: Active Orders 24 hr Category Date Time Status Vaccines to be Administered [RC] PER UNIT ROUTINE Care 11/28/20 16:31 Active Bacitracin [Bacitracin Oint 1 GM] Med 11/28/20 16:34 Once 1 dose TOP ONETIME ONE Meds: Medications Discontinued Medications Generic Name Dose Route Start Last Admin Trade Name Freq PRN Reason Stop Dose Admin Diphtheria/Tetanus/Acell Pertussis 0.5 ml 11/28/20 16:30 Diphtheria,Pertussis(Acell),Tetanus Vaccine 0.5 Ml Syringe IM 11/28/20 16:31 .ONCE ONE Departure - Departure Time of Disposition: 16:50 Disposition: Home, Self-Care 01 Condition: Good Clinical Impression: Puncture wound - Discharge Information *PRESCRIPTION DRUG MONITORING PROGRAM REVIEWED*: Not Applicable *COPY OF PRESCRIPTION DRUG MONITORING REPORT IN PATIENT JAYCEE: Not Applicable Instructions: Puncture Wound, [id number] Referrals: Toyin Ward CNM [Primary Care Provider] - Additional Instructions: Acetaminophen up to 1000 mg every 6 hrs as needed for pain relief. Elevate foot today as much as possible. Heel walking for at least 3 days. Clean wound with soap and water 2-3 times/day. Recheck in the clinic in 2-3 days to insure no inf ection. Sepsis Event Note (ED) - Focused Exam Vital Signs: Vital Signs Temp Pulse Resp BP Pulse Ox 11/28/20 16:29 36.9 C 79 16 129/81 99 - My Orders Last 24 Hours: My Active Orders 11/28/20 16:31 Vaccines to be Administered [RC] PER UNIT ROUTINE 11/28/20 16:34 Bacitracin [Bacitracin Oint 1 GM] 1 dose TOP ONETIME ONE - Assessment/Plan Last 24 Hours: My Active Orders 11/28/20 16:31 Vaccines to be Administered [RC] PER UNIT ROUTINE 11/28/20 16:34 Bacitracin [Bacitracin Oint 1 GM] 1 dose TOP ONETIME ONE
[2020-11-28 16:55] VITALS: BP 129/81; PULSE 79
== END 2020-11-28 16:57 | disposition home or self-care (01) ==
LOC: JP.ED 16:19
DX: S91.331A Puncture wound without foreign body, right foot, initial encounter (principal); J45.909 Unspecified asthma, uncomplicated; Z23 Encounter for immunization; Z88.1 Allergy status to other antibiotic agents; Z91.030 Bee allergy status; Z88.8 Allergy status to other drugs, medicaments and biological substances; W45.0XXA Nail entering through skin, initial encounter; Y92.009 Unspecified place in unspecified non-institutional (private) residence as the place of occurrence of the external cause
CPT/HCPCS: 90471; 90715; 99282; 99283

== ENCOUNTER 2022-12-26 21:54 | Emergency (ER) | payer BC ==
[2022-12-26 22:14] VITALS: BP 140/80; PULSE 74
[2022-12-26] MEDS ORDERED: Proparacaine 0.5% Ophth Soln 15 ML Bottle EYERT ONE (22:26)
== END 2022-12-26 23:23 | disposition home or self-care (01) ==
LOC: JP.ED 21:54
DX: H20.00 Unspecified acute and subacute iridocyclitis (principal); Z88.1 Allergy status to other antibiotic agents; Z91.030 Bee allergy status; Z91.048 Other nonmedicinal substance allergy status; Z72.0 Tobacco use
CPT/HCPCS: 99282; 99283; A9270-GY

== ENCOUNTER 2023-12-08 13:40 | Emergency (ER) | payer BC ==
[2023-12-08 14:18] VITALS: BP 152/92; PULSE 76
== END 2023-12-08 15:15 | disposition home or self-care (01) ==
LOC: JP.ED 13:40
DX: H66.93 Otitis media, unspecified, bilateral (principal); R51.9 Headache, unspecified; J45.909 Unspecified asthma, uncomplicated; F17.210 Nicotine dependence, cigarettes, uncomplicated; Z88.1 Allergy status to other antibiotic agents; Z88.8 Allergy status to other drugs, medicaments and biological substances; Z91.030 Bee allergy status; Z91.048 Other nonmedicinal substance allergy status; Z90.710 Acquired absence of both cervix and uterus; Z79.899 Other long term (current) drug therapy; Z79.51 Long term (current) use of inhaled steroids
CPT/HCPCS: 99283

== ENCOUNTER 2024-12-10 21:32 | Emergency (ER) | payer BC ==
[2024-12-10 22:28] VITALS: PULSE 90
[2024-12-10 23:12] LABS: BASOPHILS ABSOLUTE AUTO 0.08 K/uL (0.00-0.10); BASOPHILS PERCENT AUTO 0.5 % (0.1-1.3); EOSINOPHILS ABSOLUTE AUTO 0.37 K/uL (0.00-0.40); EOSINOPHILS PERCENT AUTO 2.5 % (0.0-5.4); HEMATOCRIT 41.8 % (34.3-46.0); HEMOGLOBIN 13.9 g/dL (11.2-15.5); IMMATURE GRAN ABSOLUTE AUTO 0.05 K/uL (0.00-0.23); IMMATURE GRAN PERCENT AUTO 0.3 % (0.0-0.7); LYMPHOCYTES ABSOLUTE AUTO 4.45 K/uL (0.8-3.3); LYMPHOCYTES PERCENT AUTO 29.7 % (11.4-47.7); MEAN CORPUSCULAR HGB CONC 33.3 g/dL (31.6-35.5); MEAN CORPUSCULAR VOLUME 90.1 fL (81.4-99.0); MONOCYTES ABSOLUTE AUTO 0.84 K/uL (0.20-0.90); MONOCYTES PERCENT AUTO 5.6 % (3.3-12.6); NEUTROPHILS ABSOLUTE AUTO 9.17 K/uL (1.0-7.6); NEUTROPHILS PERCENT AUTO 61.4 % (40.0-78.1); PLATELET COUNT,PLT 313 K/uL (130-375); RED BLOOD CELL COUNT 4.64 M/uL (3.77-5.24)
[2024-12-10] MEDS: Sodium Chloride 0.9% 10 ML Syringe FLUSH PRN (23:26)
[2024-12-10] MEDS: methylPREDNISolone Sodium Succinate 125 MG/2 ML SDV IVPUSH ONE (23:26)
[2024-12-10] MEDS: Albuterol/Ipratropium 3.0-0.5 MG/3 ML Neb Soln NEB ONE (23:26)
[2024-12-10 23:48] LABS: ALANINE AMINOTRANSFERASE,ALT 34 U/L (12-78); ALBUMIN 3.7 g/dL (3.4-5.0); ALKALINE PHOSPHATASE 82 U/L (46-116); ASPARTATE AMNIOTRANSFERASE,AST 14 U/L (15-37); BILIRUBIN TOTAL 0.2 mg/dL (0.2-1.0); BLOOD UREA NITROGEN,BUN 7 mg/dL (7-18); CALCIUM 9.8 mg/dL (8.5-10.1); CARBON DIOXIDE,CO2 22 mmol/L (21-32); CHLORIDE,CL 104 mmol/L (100-108); CREATININE 1.2 mg/dL (0.6-1.0); EST CRCL DRUG DOSING (CG) 59.72 mL/min; ESTIMATED GFR 57 mL/min (>60); GLUCOSE RANDOM 118 mg/dL (74-106); POTASSIUM,K 3.5 mmol/L (3.6-5.2); PROTEIN TOTAL,TP 7.6 g/dL (6.4-8.2); SODIUM,NA 140 mmol/L (140-148)
[2024-12-10 23:55] LABS: ANION GAP 17.5 mmol/L (5.0-14.0)
[2024-12-11] MEDS: cefTRIAXone 1 GM in Sodium Chloride 0.9% 50 ML IV ONE (00:43)
[2024-12-11] MEDS: Ketorolac 15 MG/ML SDV IVPUSH ONE (00:59)
[2024-12-11] MEDS: Sodium Chloride 0.9% 1,000 ML IV SCH (00:59)
[2024-12-11 01:47] VITALS: BP 154/87
== END 2024-12-11 01:46 | disposition home or self-care (01) ==
LOC: JP.ED 21:32
DX: J40 Bronchitis, not specified as acute or chronic (principal); J98.01 Acute bronchospasm; F17.210 Nicotine dependence, cigarettes, uncomplicated; Z90.49 Acquired absence of other specified parts of digestive tract; Z90.710 Acquired absence of both cervix and uterus; Z88.1 Allergy status to other antibiotic agents; Z88.8 Allergy status to other drugs, medicaments and biological substances; Z91.030 Bee allergy status; Z91.048 Other nonmedicinal substance allergy status; Z79.51 Long term (current) use of inhaled steroids; Z79.899 Other long term (current) drug therapy
CPT/HCPCS: 36415; 71046; 80053; 85025; 94640; 96361; 96374; 96375; 99283; 99285; J1885; J2919; J7030; J7620; A9270-GY

== ENCOUNTER 2025-02-27 11:00 | Emergency (ER) | payer BC ==
[2025-02-27 14:16] LABS: BASOPHILS ABSOLUTE AUTO 0.06 K/uL (0.00-0.10); BASOPHILS PERCENT AUTO 0.8 % (0.1-1.3); EOSINOPHILS ABSOLUTE AUTO 0.07 K/uL (0.00-0.40); EOSINOPHILS PERCENT AUTO 1.0 % (0.0-5.4); IMMATURE GRAN ABSOLUTE AUTO 0.05 K/uL (0.00-0.23); IMMATURE GRAN PERCENT AUTO 0.7 % (0.0-0.7); LYMPHOCYTES ABSOLUTE AUTO 1.71 K/uL (0.8-3.3); LYMPHOCYTES PERCENT AUTO 24.1 % (11.4-47.7); MONOCYTES ABSOLUTE AUTO 0.48 K/uL (0.20-0.90); MONOCYTES PERCENT AUTO 6.8 % (3.3-12.6); NEUTROPHILS ABSOLUTE AUTO 4.74 K/uL (1.0-7.6); NEUTROPHILS PERCENT AUTO 66.6 % (40.0-78.1); PLATELET COUNT,PLT 217 K/uL (130-375); RED BLOOD CELL COUNT 5.17 M/uL (3.77-5.24); WHITE BLOOD CELL COUNT,WBC 7.1 K/uL (3.2-11.0)
[2025-02-27] MEDS: Sodium Chloride 0.9% 10 ML Syringe FLUSH PRN (14:17)
[2025-02-27] MEDS: Ondansetron 4 MG/2 ML SDV IVPUSH ONE (14:18)
[2025-02-27 14:35] LABS: A/G RATIO 0.9 (1.2-2.2); ALANINE AMINOTRANSFERASE,ALT 34 U/L (12-78); ASPARTATE AMNIOTRANSFERASE,AST 25 U/L (15-37); BILIRUBIN TOTAL 0.4 mg/dL (0.2-1.0); BLOOD UREA NITROGEN,BUN 10 mg/dL (7-18); CARBON DIOXIDE,CO2 22 mmol/L (21-32); CHLORIDE,CL 106 mmol/L (100-108); CREATININE 0.8 mg/dL (0.6-1.0); EST CRCL DRUG DOSING (CG) 89.58 mL/min; ESTIMATED GFR 93 mL/min (>60); GLUCOSE RANDOM 100 mg/dL (74-106); POTASSIUM,K 3.7 mmol/L (3.6-5.2); PROTEIN TOTAL,TP 7.2 g/dL (6.4-8.2); SODIUM,NA 139 mmol/L (140-148)
[2025-02-27 16:02] LABS: APPEARANCE,URINE CLEAR (CLEAR); GLUCOSE,URINE NEGATIVE (NEGATIVE); OCCULT BLOOD,URINE SMALL (NEGATIVE)
[2025-02-27 16:03] VITALS: BP 125/83; PULSE 79
[2025-02-27 16:09] LABS: EPITHELIAL CELLS,URINE RARE
== END 2025-02-27 17:02 | disposition home or self-care (01) ==
LOC: JP.ED 11:00
DX: K52.9 Noninfective gastroenteritis and colitis, unspecified (principal); F17.210 Nicotine dependence, cigarettes, uncomplicated; Z90.710 Acquired absence of both cervix and uterus; Z79.899 Other long term (current) drug therapy; Z88.0 Allergy status to penicillin; Z88.1 Allergy status to other antibiotic agents; Z88.5 Allergy status to narcotic agent; Z88.8 Allergy status to other drugs, medicaments and biological substances; Z91.030 Bee allergy status; Z91.048 Other nonmedicinal substance allergy status
CPT/HCPCS: 36415; 80053; 81001; 83605; 85025; 86618; 87046; 87427; 89055; 96361; 96374; 99283; 99285; J2405; J7030